=== PATIENT | male | born 1995 | race Caucasian/White ===

== ENCOUNTER 2023-01-20 13:17 | Emergency (ER) | payer MEDICAID ==
[~2023-01-20] VITALS: Ht 170.2 cm; Wt 76.0 kg
[2023-01-20 14:22] LABS: HEMATOCRIT. 47.8 % (42.0-52.0); HEMOGLOBIN. 16.8 g/dL (14.0-18.0); MEAN CORPUSCULAR HEMOGLOBIN 31.4 pg (28.0-32.0); MEAN CORPUSCULAR HGB CONC 35.1 g/dL (31.0-37.0); MEAN CORPUSCULAR VOLUME 89.3 fL (80.0-94.0); MEAN PLATELET VOLUME 8.9 fl (7.4-10.4); PLATELET 224 x1000/uL (130-400); RED BLOOD CELL COUNT 5.35 mill/uL (4.7-6.1); RED CELL DISTRIBUTION WIDTH 13.6 % (11.6-14.6); WHITE BLOOD COUNT 11.3 x1000/uL (4.5-11.0)
[2023-01-20 14:23] LABS: DIFFERENTIAL COMMENT 1
[2023-01-20 14:31] LABS: CHLORIDE 110 mEq/L (98-107); INDEX HEMOLYSI 1 (1-3); INDEX ICTERIC 1 (1-4); INDEX LIPEMIC 1 (1-3); POTASSIUM 3.8 mEq/L (3.5-5.1); SODIUM 138 mEq/L (136-145)
[2023-01-20 14:41] LABS: ALANINE AMINOTRANSFERASE 24 IU/L (13-61); ALBUMIN 3.8 g/dL (3.4-5.0); ASPARTATE AMINOTRANSFERASE 21 IU/L (15-37); BILIRUBIN TOTAL 0.9 mg/dL (0.1-1.0); CALCIUM 8.8 mg/dL (8.5-10.1); CARBON DIOXIDE 23 mEq/L (21-32); CREATININE 0.7 mg/dL (0.6-1.3); GLUCOSE 85 mg/dL (70-105); PROTEIN TOTAL 6.7 g/dL (6.0-8.3); UREA NITROGEN BLOOD 10 mg/dL (7-21)
[2023-01-20 15:15] LABS: PLATELET ESTIMATE NORMAL
[2023-01-20] MEDS ORDERED: ALBUTEROL (0.083%) 2.5MG/3ML NEB HHN STA (15:32)
[2023-01-20 16:45] VITALS: PULSE 95; RESP 21; O2SAT 95
[2023-01-20] MEDS ORDERED: P50 MT (17:43)
[2023-01-20] MEDS ORDERED: ALBU18HF2 IH (17:43)
[2023-01-20] MEDS ORDERED: BENZ200C52 MT (17:43)
[2023-01-20 18:07] VITALS: BP 127/84; PULSE 83; RESP 18; TEMP 98.2
== END 2023-01-20 18:08 | disposition home or self-care (01) ==
LOC: ER 13:17
DX: J20.9 Acute bronchitis, unspecified (principal); R06.2 Wheezing
CPT/HCPCS: 80053; 83605; 85025; 87040; 36415; 71045; 94640; 99284; Z7610 ×3